=== PATIENT | female | born 1990 | race American Indian/Alaskan Native ===

== ENCOUNTER 2018-12-09 18:22 | Emergency (ER) | payer OTHER, MEDICAID ==
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
[2018-12-09 18:44] VITALS: BP 106/49
[2018-12-09] MEDS ORDERED: FLEXERIL PO ONE (20:12)
[2018-12-09] MEDS ORDERED: IBUPROFEN PO ONE (20:12)
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
== END 2018-12-09 21:03 | disposition home or self-care (01) ==
LOC: ED 18:22
DX: M79.18 Myalgia, other site (principal)
CPT/HCPCS: 72100